=== PATIENT | female | born 2000 | race Hispanic/Latino ===

== ENCOUNTER 2021-04-02 01:32 | Emergency (ER) | payer OTHER ==
[2021-04-02] MEDS ORDERED: Bacitracin 1 PK ONE (01:44)
[2021-04-02] MEDS ORDERED: Acetaminophen 500 MG TAB ONE (01:53)
== END 2021-04-02 02:02 | disposition home or self-care (01) ==
LOC: CSHERS 01:32
DX: T22.232A Burn of second degree of left upper arm, initial encounter (principal); X19.XXXA Contact with other heat and hot substances, initial encounter
CPT/HCPCS: 16020